=== PATIENT | female | born 1935 | race Two or more races ===

== ENCOUNTER 2020-01-11 10:12 | Emergency (ER) | payer MEDICARE, OTHER ==
[~2020-01-11] VITALS: Ht 160 cm; Wt 54.4 kg
--- NOTE | 2020-01-11 10:38 | NUR ---
pt presents to ED seeking care for dizziness and htn noted upon awakenig this am. pt is a&ox4, resps even and unlabored, neuro intact. pt denies pain. denies sob. denies visual changes/headache. denies chest pain. all monitors in place, nsr on coil inspector with no ectopy. pt conversing with NASIR Sen who is at bedside for initial assessment. daughter at bedside.
--- NOTE | 2020-01-11 11:02 | NUR ---
pt ambulatory to bathroom with daughter, clean catch urine provided. pt taken to CT at this time.
[2020-01-11 11:33] LABS: MICROSCOPIC AUTO
[2020-01-11 11:41] LABS: BASOPHILS # (AUTO) 0.05 x10^3/uL (0-0.1); BASOPHILS % (AUTO) 1 % (0-1); EOSINOPHILS # (AUTO) 0.03 x10^3/uL (0-0.4); EOSINOPHILS % (AUTO) 1 % (1-7); LYMPHOCYTES # (AUTO) 1.46 x10^3/uL (1-3.4); LYMPHOCYTES % (AUTO) 29 % (22-44); MD NO; MEAN CORPUSCULAR HEMOGLOBIN 30.4 pg (27.0-34.8); MEAN CORPUSCULAR HGB CONC 32.4 g/dL (32.4-35.8); MEAN CORPUSCULAR VOLUME 93.8 fL (80-100); MEAN PLATELET VOLUME 8.7 fL (7.4-10.4); MONOCYTES % (AUTO) 10 % (2-9); NEUTROPHILS # (AUTO) 2.99 x10^3/uL (1.8-6.8); NEUTROPHILS % (AUTO) 59 % (42-75); PLATELET COUNT 246 x10^3/uL (130-400); RED BLOOD COUNT 4.48 x10^6/uL (3.82-5.3); RED CELL DISTRIBUTION WIDTH 13.8 % (9.6-15.2)
[2020-01-11 11:54] LABS: ALANINE AMINOTRANSFERASE 23 U/L (12-78); ALBUMIN 3.8 g/dL (3.4-5.0); ANION GAP 5 mmol/L (5-15); CALCIUM 9.6 mg/dL (8.5-10.1); CHLORIDE 110 mmol/L (98-107); CREATININE 1.09 mg/dL (0.55-1.02)
[2020-01-11 11:56] LABS: ALKALINE PHOSPHATASE 57 U/L (45-117); BILIRUBIN,TOTAL 0.6 mg/dL (0.2-1.0); TOTAL PROTEIN 7.6 g/dL (6.4-8.2)
--- NOTE | 2020-01-11 12:00 | NUR ---
FAN SERNA AT BEDSIDE TO EXPLAIN RESULTS AND POC, HOME HTN MEDS REVIEWED BY FAN SERNA MD GIVING PT AND FAMILY MEMBERS RECOMMENDATIONS TO CHANGE TIMING OF NIFEDIPINE FROM QAM TO QPM. PT TO FOLLOW UP WITH PCP THIS WEEK.
[2020-01-11] MEDS ORDERED: CARBAMIDE PEROXIDE EAR DROPS 6.5%, 15ML ONE (12:08)
[2020-01-11] MEDS ORDERED: CARBAMIDE PEROXIDE EAR DROPS 6.5%, 15ML RIGHT EAR ONE (12:30)
[2020-01-11 13:06] VITALS: BP 170/83
--- NOTE | 2020-01-11 13:08 | NUR ---
PT GIVEN DC INSTRUCTIONS , MED TIMING INSTRUCTIONS REVIEWED WITH PT AND DAUGHTER, PT IS A&O, RESPS EVEN AND UNLABORED, NSR ON FRUIT CANNER WITH NO ECTOPY. PT STATES DIZZINESS RESOLVED. PT AMBULATORY TO DC DESK WITH STEADY GAIT, DAUGHTER ACCOMPANYING. DC BP 170/83 REVIEWED WITH FAN SERNA MD OK'D RN TO DC PT.
== END 2020-01-11 13:08 | disposition home or self-care (01) ==
LOC: ED 11:18
DX: R55 Syncope and collapse (principal); R42 Dizziness and giddiness; I10 Essential (primary) hypertension; H61.21 Impacted cerumen, right ear; R51 Headache
CPT/HCPCS: 36415; 70450; 80053; 81001; 85025; 87086; 93005; 99285